=== PATIENT | male | born 1980 | race Caucasian/White ===

== ENCOUNTER 2018-12-06 18:10 | Inpatient (IN) ==
[2018-12-06 18:49] LABS: Bilirubin,Urine Negative (Negative); Blood,Urine Negative (Negative); Clarity,Urine Clear (Clear); Color,Urine Yellow (Yellow); Glucose,Urine (UA) Normal (Normal); Ketones,Urine Negative (Negative); Leukocyte Esterase,Urine Negative (Negative); Nitrite,Urine Negative (Negative); Protein,Urine Negative (Neg-Trace); Urobilinogen,Urine Normal (Normal)
--- NOTE | 2018-12-06 18:50 | Emergency Department Note ---
Disposition Clinical Impression: Suicidal ideation Disposition: Still a Patient Condition: Undetermined Instructions: Depression (ED), Suicide Prevention for Adults (ED) Reasons to Return/Additional Instructions: Please return to the ED if you experience any new or worsening symptoms of anxiety, or depression, including thoughts of harming yourself or others, hallucinations, or any other symptoms that may be concerning to you. Please follow-up with your primary care provider within the next week as well as further psychiatric/counseling services as referred by [place] [facility]. Referrals: NONE,PCP [Primary Care Provider] - Forms: ED Satisfaction Letter Time of Disposition: 21:10 Psych HPI - General Chief Complaint: ED Psychiatric Symptoms Stated Complaint: psych eval, SI/HI Time Seen by Provider: 12/06/18 18:35 Source: patient, family Mode of arrival: ambulatory Limitations: no limitations Nursing Notes Reviewed: Yes Vital Signs Reviewed: Yes - History of Present Illness HPI Narrative: 38 year old male past medical history of unmedicated bipolar disorder presenting for 2 weeks of worsening depression and suicidal ideation. Patient states that today is the anniversary of his father's which caused him to have deeply negative emotional feelings. Patient admits to suicidal ideation but denies a specific plan. Patient states that he has been medicated as well as attended counseling in the past but has had no recent follow-ups. Patient denies homicidal ideation. Patient denies any recent suicide attempts, denies trauma or ingestion. Patient states that he "went on a binger" the other day" but denies any recent trauma. Patient expresses his desire to get help and speak with a counselor. Pt complaint: suicidal ideation, feels depressed Onset (ago): week(s) Duration: constant, getting worse History of similar episodes: Yes Improves with: medication, therapy Worsens with: alcohol, drug use Context: recent alcohol abuse, not taking psychiatric medications, significant life stressor Alleged intoxication: No Associated Psychiatric Symptoms: depression, suicidal ideation Associated symptoms: Reports: denies other symptoms Traumatic symptoms: denies traumatic injury Treatments prior to arrival: none Self harm or harm to others: admits thoughts of self harm, denies having a plan - Related Data Previous Rx's Medication Instructions Recorded Cyclobenzaprine [Flexeril] 10 mg PO TID PRN #20 tablet 08/01/18 Ibuprofen [Motrin] 600 mg PO Q8HR PRN #20 tab 08/01/18 Allergies Allergy/AdvReac Type Severity Reaction Status Date / Time No Known Allergies Allergy Verified 08/01/18 13:31 All systems ED: reviewed and negative except as stated. Review of Systems: As Per HPI Cardiovascular: Denies: chest pain Respiratory: Denies: dyspnea Gastrointestinal: Denies: abdominal pain Musculoskeletal: Denies: back pain, neck pain Neurological: Denies: headache, weakness, numbness, paresthesias Past Medical History - Past Medical History Source: patient Medical history: Reports: no medical history Surgical history: Reports: non-contributory Psychiatric history: Reports: no psych history - Social History Smoking Status: Current every day smoker Smokeless Tobacco Status: No Alcohol use: Reports: occasionally Drug use: Reports: none Physical Exam - General Limitations: no limitations General appearance: alert, in no apparent distress - Head Head exam: atraumatic, normocephalic, normal inspection - Eye Eye exam: Present: normal appearance, PERRL, EOMI. Absent: scleral icterus - Neck Neck exam: Present: normal inspection, trachea midline. Absent: thyromegaly - Chest Chest inspection: Present: normal inspection, symmetric chest wall rise - Respiratory Respiratory exam: Present: normal lung sounds bilaterally. Absent: respiratory distress, wheezes, stridor, accessory muscle use, prolonged expiratory phase - Cardiovascular Cardiovascular exam: Present: regular rate, normal rhythm, normal heart sounds, +S1, +S2. Absent: systolic murmur, diastolic murmur, JVD, +S3, +S4 - Abdominal Exam Abdominal exam: Present: soft, Non-Tender, normal bowel sounds. Absent: distention, guarding, rebound, rigidity - Neurological Exam Neurological exam: Present: alert, oriented X3 - Psychiatric Psychiatric exam: Present: depressed - Skin Skin exam: Present: warm, dry, intact, normal color. Absent: rash, cyanosis, diaphoresis, erythema, pallor, mottled Course Course Narrative: Metabolic laboratories and toxicologies ordered in order to medically clear patient We will notify 1 a psychiatric services upon completion. Vital Signs Temperature 97.6 F 12/06/18 18:23 Pulse Rate 101 12/06/18 18:23 Respiratory Rate 18 12/06/18 18:23 Blood Pressure 129/83 12/06/18 18:23 O2 Sat by Pulse Oximetry 96 12/06/18 18:23 Temperature 97.6 F 12/06/18 18:23 Pulse Rate 87 12/06/18 18:49 Respiratory Rate 16 12/06/18 18:49 Blood Pressure 124/78 12/06/18 18:49 O2 Sat by Pulse Oximetry 98 12/06/18 18:49 Oxygen Delivery Oxygen Delivery Room Air Psych - MDM Narrative Medical decision making narrative: Laboratory values are negative for acute pathology. Patient is medically cleared for psychiatric evaluation. - Lab Data Lab results reviewed: Yes I reviewed the patient's lab results. Result diagrams: 12/06/18 18:52 12/06/18 18:52 Lab Results 12/06/18 12/06/18 12/06/18 Range/Units 18:38 18:38 18:52 WBC 7.9 (4.3-11.1) K/mcL RBC 4.58 (4.19-5.50) M/mcL Hgb 14.1 (12.9-16.9) g/dL Hct 41.8 (37.5-50.1) % MCV 91.3 (83.0-100.0) fL MCH 30.8 (28.0-33.3) pg MCHC 33.7 (31.6-35.5) g/dL RDW 13.2 (11.5-14.5) % Plt Count 245 (140-400) K/mcL MPV 10.1 (9.4-12.4) fL Immature Gran % 0.5 (0-4) % Seg Neutrophils % 60.3 % Lymphocytes % 29.0 % Monocytes % 7.3 % Eosinophils % 2.5 % Basophils % 0.4 % Neutrophils # 4.8 (1.6-8.9) K/mcL Lymphocytes # 2.3 (0.6-4.6) K/mcL Monocytes # 0.6 (0.0-1.3) K/mcL Eosinophils # 0.2 (0.0-0.6) K/mcL Basophils # 0.0 (0.0-0.2) K/mcL Sodium (136-145) mEq/L Potassium (3.5-5.1) mEq/L Chloride (98-107) mEq/L Carbon Dioxide (23-29) mEq/L BUN (6-20) mg/dL Creatinine (0.70-1.30) mg/dL Est GFR ( Amer) (> 60) Est GFR (Non-Af Amer) (> 60) BUN/Creatinine Ratio (6-26) Glucose (70-105) mg/dL Calculated Osmolality (280-300) Calcium (8.6-10.3) mg/dL Urine Color Yellow (Yellow) Urine Clarity Clear (Clear) Urine pH 7.0 (5.0-8.0) pH Units Ur Specific [place] 1.010 (1.010-1.025) Urine Protein Negative (Neg-Trace) mg/dL Urine Glucose (UA) Normal (Normal) mg/dL Urine Ketones Negative (Negative) mg/dL Urine Blood Negative (Negative) Urine Nitrite Negative (Negative) Urine Bilirubin Negative (Negative) Urine Urobilinogen Normal (Normal) mg/dL Ur Leukocyte Esterase Negative (Negative) Salicylates (15.0-30.0) mg/dL Urine Opiates Screen Negative (Hzeset=425) ng/mL Acetaminophen (10-20) mcg/mL Ur Barbiturates Screen Negative ([place]=485) ng/mL Ur Phencyclidine Scrn Negative (Cutoff=25) ng/mL Ur Amphetamines Screen Negative (Sxwjdd=5504) ng/mL U Benzodiazepines Scrn Negative (Bzorxl=436) ng/mL Urine Cocaine Screen Negative (Cutoff= 300) ng/mL U Marijuana (THC) Screen Positive H (Cutoff = 50) ng/mL Ur Drug Screen Interp See Below Ethyl Alcohol (Less than 10) mg/dL 12/06/18 Range/Units 18:52 WBC (4.3-11.1) K/mcL RBC (4.19-5.50) M/mcL Hgb (12.9-16.9) g/dL Hct (37.5-50.1) % MCV (83.0-100.0) fL MCH (28.0-33.3) pg MCHC (31.6-35.5) g/dL RDW (11.5-14.5) % Plt Count (140-400) K/mcL MPV (9.4-12.4) fL Immature Gran % (0-4) % Seg Neutrophils % % Lymphocytes % % Monocytes % % Eosinophils % % Basophils % % Neutrophils # (1.6-8.9) K/mcL Lymphocytes # (0.6-4.6) K/mcL Monocytes # (0.0-1.3) K/mcL Eosinophils # (0.0-0.6) K/mcL Basophils # (0.0-0.2) K/mcL Sodium 140 (136-145) mEq/L Potassium 4.1 (3.5-5.1) mEq/L Chloride 105 (98-107) mEq/L Carbon Dioxide 27 (23-29) mEq/L BUN 12 (6-20) mg/dL Creatinine 0.84 (0.70-1.30) mg/dL Est GFR ( Amer) > 60 (> 60) Est GFR (Non-Af Amer) > 60 (> 60) BUN/Creatinine Ratio 14 (6-26) Glucose 103 (70-105) mg/dL Calculated Osmolality 290 (280-300) Calcium 9.3 (8.6-10.3) mg/dL Urine Color (Yellow) Urine Clarity (Clear) Urine pH (5.0-8.0) pH Units Ur Specific [place] (1.010-1.025) Urine Protein (Neg-Trace) mg/dL Urine Glucose (UA) (Normal) mg/dL Urine Ketones (Negative) mg/dL Urine Blood (Negative) Urine Nitrite (Negative) Urine Bilirubin (Negative) Urine Urobilinogen (Normal) mg/dL Ur Leukocyte Esterase (Negative) Salicylates < 2.5 L (15.0-30.0) mg/dL Urine Opiates Screen (Hnultz=838) ng/mL Acetaminophen < 10 L (10-20) mcg/mL Ur Barbiturates Screen (Nrqgan=188) ng/mL Ur Phencyclidine Scrn (Cutoff=25) ng/mL Ur Amphetamines Screen (Lpzbrj=5864) ng/mL U Benzodiazepines Scrn (Rrfsly=962) ng/mL Urine Cocaine Screen (Cutoff= 300) ng/mL U Marijuana (THC) Screen (Cutoff = 50) ng/mL Ur Drug Screen Interp Ethyl Alcohol < 10 (Less than 10) mg/dL Psychiatric Medical Clearance - Medical Clearance Checklist Medical History: No Social History Section defined Current Vitals: Last Vital Signs Temp 97.6 F 12/06/18 18:23 Pulse 87 12/06/18 18:49 Resp 16 12/06/18 18:49 BP 124/78 12/06/18 18:49 Pulse Ox 98 12/06/18 18:49 Psychiatric Lab Panel: Drug Levels and Toxicity 12/06/18 12/06/18 18:38 18:52 Urine Opiates Screen Negative Acetaminophen < 10 L Ur Barbiturates Screen Negative Ur Phencyclidine Scrn Negative Ur Amphetamines Screen Negative U Benzodiazepines Scrn Negative Urine Cocaine Screen Negative U Marijuana (THC) Screen Positive H Ethyl Alcohol < 10 Abnormal Labs: Abnormal lab results Salicylates < 2.5 mg/dL (15.0-30.0) L 12/06/18 18:52 Acetaminophen < 10 mcg/mL (10-20) L 12/06/18 18:52 U Marijuana (THC) Screen Positive ng/mL (Cutoff = 50) H 12/06/18 18:38 Statement of Medical Clearance: I have evaluated the patient, reviewed diagnostic information, and certify that the patient's medical condition is sufficiently stable that transfer to the psychiatric unit does not pose a significant risk of deterioration.
[2018-12-06 19:03] LABS: Amphetamine Screen,Urine Negative ng/mL (Cutoff=1000); Barbiturate Screen,Urine Negative ng/mL (Cutoff=200); Benzodiazepines Screen,Urine Negative ng/mL (Cutoff=200); Cannabinoid Screen,Urine Positive ng/mL (Cutoff = 50); Cocaine Screen,Urine Negative ng/mL (Cutoff= 300); Opiate Screen,Urine Negative ng/mL (Cutoff=300); Phencyclidine Screen,Urine Negative ng/mL (Cutoff=25)
[2018-12-06 19:20] LABS: Basophils % 0.4 %; Eosinophils # 0.2 K/mcL (0.0-0.6); Eosinophils % 2.5 %; Hematocrit 41.8 % (37.5-50.1); Hemoglobin 14.1 g/dL (12.9-16.9); Immature Granulocytes % 0.5 % (0-4); Lymphocytes # 2.3 K/mcL (0.6-4.6); Mean Corpuscular HGB Conc 33.7 g/dL (31.6-35.5); Mean Corpuscular Hemoglobin 30.8 pg (28.0-33.3); Mean Corpuscular Volume 91.3 fL (83.0-100.0); Mean Platelet Volume 10.1 fL (9.4-12.4); Monocytes # 0.6 K/mcL (0.0-1.3); Monocytes % 7.3 %; Neutrophils # 4.8 K/mcL (1.6-8.9); Platelet Count 245 K/mcL (140-400); Red Blood Count 4.58 M/mcL (4.19-5.50); Red Cell Distribution Width 13.2 % (11.5-14.5); Segmented Neutrophils % 60.3 %
[2018-12-06 19:38] LABS: Acetaminophen < 10 mcg/mL (10-20); BUN/Creatinine Ratio 14 (6-26); Blood Urea Nitrogen 12 mg/dL (6-20); Calcium 9.3 mg/dL (8.6-10.3); Carbon Dioxide 27 mEq/L (23-29); Chloride 105 mEq/L (98-107); Ethanol < 10 mg/dL (Less than 10); Glucose 103 mg/dL (70-105); Osmolality,Calculated 290 (280-300); Potassium 4.1 mEq/L (3.5-5.1); Salicylate < 2.5 mg/dL (15.0-30.0); Sodium 140 mEq/L (136-145); eGFR For Non-African Americans > 60 (> 60)
--- NOTE | 2018-12-06 19:53 | Emergency Department Note ---
Disposition Clinical Impression: Suicidal ideation Disposition: Still a Patient Condition: Undetermined Instructions: Depression (ED), Suicide Prevention for Adults (ED) Reasons to Return/Additional Instructions: Please return to the ED if you experience any new or worsening symptoms of anxiety, or depression, including thoughts of harming yourself or others, hallucinations, or any other symptoms that may be concerning to you. Please follow-up with your primary care provider within the next week as well as further psychiatric/counseling services as referred by [place] [facility]. Referrals: NONE,PCP [Primary Care Provider] - Forms: ED Satisfaction Letter General Adult HPI - General Chief complaint: ED Psychiatric Symptoms Stated complaint: psych eval, SI/HI Time Seen by Provider: 12/06/18 18:35 Source: patient, family Mode of arrival: ambulatory Limitations: no limitations - History of Present Illness Pain Scale: 5 - Related Data Previous Rx's Medication Instructions Recorded Cyclobenzaprine [Flexeril] 10 mg PO TID PRN #20 tablet 08/01/18 Ibuprofen [Motrin] 600 mg PO Q8HR PRN #20 tab 08/01/18 Allergies Allergy/AdvReac Type Severity Reaction Status Date / Time No Known Allergies Allergy Verified 08/01/18 13:31 Cardiovascular: Denies: chest pain Respiratory: Denies: dyspnea Gastrointestinal: Denies: abdominal pain Musculoskeletal: Denies: back pain, neck pain Neurological: Denies: headache, weakness, numbness, paresthesias Past Medical History - Past Medical History Medical history: Reports: no medical history Surgical history: Reports: non-contributory Psychiatric history: Reports: no psych history - Social History Smoking Status: Current every day smoker Smokeless Tobacco Status: No Alcohol use: Reports: occasionally Drug use: Reports: none Physical Exam - General Limitations: no limitations General appearance: alert, in no apparent distress Course Course Narrative: will sign patient out to Dr. Mcdonald for followup on 1A reccs. Vital Signs Temperature 97.6 F 12/06/18 18:23 Pulse Rate 101 12/06/18 18:23 Respiratory Rate 18 12/06/18 18:23 Blood Pressure 129/83 12/06/18 18:23 O2 Sat by Pulse Oximetry 96 12/06/18 18:23 Temperature 97.6 F 12/06/18 18:23 Pulse Rate 87 12/06/18 18:49 Respiratory Rate 16 04/12/19 18:49 Blood Pressure 124/78 04/12/19 18:49 O2 Sat by Pulse Oximetry 98 12/06/18 18:49 Oxygen Delivery Oxygen Delivery Room Air Medical Decision Making - Lab Data Result diagrams: 12/06/18 18:52 12/06/18 18:52 Lab Results 12/06/18 12/06/18 12/06/18 Range/Units 18:38 18:38 18:52 WBC 7.9 (4.3-11.1) K/mcL RBC 4.58 (4.19-5.50) M/mcL Hgb 14.1 (12.9-16.9) g/dL Hct 41.8 (37.5-50.1) % MCV 91.3 (83.0-100.0) fL MCH 30.8 (28.0-33.3) pg MCHC 33.7 (31.6-35.5) g/dL RDW 13.2 (11.5-14.5) % Plt Count 245 (140-400) K/mcL MPV 10.1 (9.4-12.4) fL Immature Gran % 0.5 (0-4) % Seg Neutrophils % 60.3 % Lymphocytes % 29.0 % Monocytes % 7.3 % Eosinophils % 2.5 % Basophils % 0.4 % Neutrophils # 4.8 (1.6-8.9) K/mcL Lymphocytes # 2.3 (0.6-4.6) K/mcL Monocytes # 0.6 (0.0-1.3) K/mcL Eosinophils # 0.2 (0.0-0.6) K/mcL Basophils # 0.0 (0.0-0.2) K/mcL Sodium (136-145) mEq/L Potassium (3.5-5.1) mEq/L Chloride (98-107) mEq/L Carbon Dioxide (23-29) mEq/L BUN (6-20) mg/dL Creatinine (0.70-1.30) mg/dL Est GFR ( Amer) (> 60) Est GFR (Non-Af Amer) (> 60) BUN/Creatinine Ratio (6-26) Glucose (70-105) mg/dL Calculated Osmolality (280-300) Calcium (8.6-10.3) mg/dL Urine Color Yellow (Yellow) Urine Clarity Clear (Clear) Urine pH 7.0 (5.0-8.0) pH Units Ur Specific [place] 1.010 (1.010-1.025) Urine Protein Negative (Neg-Trace) mg/dL Urine Glucose (UA) Normal (Normal) mg/dL Urine Ketones Negative (Negative) mg/dL Urine Blood Negative (Negative) Urine Nitrite Negative (Negative) Urine Bilirubin Negative (Negative) Urine Urobilinogen Normal (Normal) mg/dL Ur Leukocyte Esterase Negative (Negative) Salicylates (15.0-30.0) mg/dL Urine Opiates Screen Negative (Smzafq=979) ng/mL Acetaminophen (10-20) mcg/mL Ur Barbiturates Screen Negative (Sbiqet=143) ng/mL Ur Phencyclidine Scrn Negative (Cutoff=25) ng/mL Ur Amphetamines Screen Negative (Khdldv=2983) ng/mL U Benzodiazepines Scrn Negative (Rfhmqf=146) ng/mL Urine Cocaine Screen Negative (Cutoff= 300) ng/mL U Marijuana (THC) Screen Positive H (Cutoff = 50) ng/mL Ur Drug Screen Interp See Below Ethyl Alcohol (Less than 10) mg/dL 12/06/18 Range/Units 18:52 WBC (4.3-11.1) K/mcL RBC (4.19-5.50) M/mcL Hgb (12.9-16.9) g/dL Hct (37.5-50.1) % MCV (83.0-100.0) fL MCH (28.0-33.3) pg MCHC (31.6-35.5) g/dL RDW (11.5-14.5) % Plt Count (140-400) K/mcL MPV (9.4-12.4) fL Immature Gran % (0-4) % Seg Neutrophils % % Lymphocytes % % Monocytes % % Eosinophils % % Basophils % % Neutrophils # (1.6-8.9) K/mcL Lymphocytes # (0.6-4.6) K/mcL Monocytes # (0.0-1.3) K/mcL Eosinophils # (0.0-0.6) K/mcL Basophils # (0.0-0.2) K/mcL Sodium 140 (136-145) mEq/L Potassium 4.1 (3.5-5.1) mEq/L Chloride 105 (98-107) mEq/L Carbon Dioxide 27 (23-29) mEq/L BUN 12 (6-20) mg/dL Creatinine 0.84 (0.70-1.30) mg/dL Est GFR ( Amer) > 60 (> 60) Est GFR (Non-Af Amer) > 60 (> 60) BUN/Creatinine Ratio 14 (6-26) Glucose 103 (70-105) mg/dL Calculated Osmolality 290 (280-300) Calcium 9.3 (8.6-10.3) mg/dL Urine Color (Yellow) Urine Clarity (Clear) Urine pH (5.0-8.0) pH Units Ur Specific [place] (1.010-1.025) Urine Protein (Neg-Trace) mg/dL Urine Glucose (UA) (Normal) mg/dL Urine Ketones (Negative) mg/dL Urine Blood (Negative) Urine Nitrite (Negative) Urine Bilirubin (Negative) Urine Urobilinogen (Normal) mg/dL Ur Leukocyte Esterase (Negative) Salicylates < 2.5 L (15.0-30.0) mg/dL Urine Opiates Screen (Ovwgbz=337) ng/mL Acetaminophen < 10 L (10-20) mcg/mL Ur Barbiturates Screen (Njxrne=565) ng/mL Ur Phencyclidine Scrn (Cutoff=25) ng/mL Ur Amphetamines Screen (Znxbod=4303) ng/mL U Benzodiazepines Scrn (Lxrwie=398) ng/mL Urine Cocaine Screen (Cutoff= 300) ng/mL U Marijuana (THC) Screen (Cutoff = 50) ng/mL Ur Drug Screen Interp Ethyl Alcohol < 10 (Less than 10) mg/dL Attestation Statement - Attestation Attestation: I examined this patient and my medical decision-making was reviewed with the Resident Physician. I agree with the documented findings, disposition and treatment plan as described except to the extent set forth below. 38 year old male presents to the ED with complaits of SI without plan and has an extensive history of bipolar disease. He has not atttempted in the past. he is now medically cleared and we will consult 1A
[2018-12-06] MEDS ORDERED: Ketorolac 30 MG/ML VIAL IM ONE (23:41)
--- NOTE | 2018-12-06 23:44 | Emergency Department Note ---
Disposition Clinical Impression: Suicidal ideation Disposition: Admitted As Inpatient Condition: Good Instructions: Depression (ED), Suicide Prevention for Adults (ED) Reasons to Return/Additional Instructions: Please return to the ED if you experience any new or worsening symptoms of anxiety, or depression, including thoughts of harming yourself or others, hallucinations, or any other symptoms that may be concerning to you. Please follow-up with your primary care provider within the next week as well as further psychiatric/counseling services as referred by [facility]. Referrals: NONE,PCP [Primary Care Provider] - Forms: ED Satisfaction Letter Time of Disposition: 23:56 General Adult HPI - General Chief complaint: ED Psychiatric Symptoms Stated complaint: psych eval, SI/HI Time Seen by Provider: 12/06/18 18:35 Source: patient, family Mode of arrival: ambulatory Limitations: no limitations - History of Present Illness Pain Scale: 5 - Related Data Previous Rx's Medication Instructions Recorded Cyclobenzaprine [Flexeril] 10 mg PO TID PRN #20 tablet 08/01/18 Ibuprofen [Motrin] 600 mg PO Q8HR PRN #20 tab 08/01/18 Allergies Allergy/AdvReac Type Severity Reaction Status Date / Time No Known Allergies Allergy Verified 08/01/18 13:31 Cardiovascular: Denies: chest pain Respiratory: Denies: dyspnea Gastrointestinal: Denies: abdominal pain Musculoskeletal: Denies: back pain, neck pain Neurological: Denies: headache, weakness, numbness, paresthesias Past Medical History - Past Medical History Medical history: Reports: no medical history Surgical history: Reports: non-contributory Psychiatric history: Reports: no psych history - Social History Smoking Status: Current every day smoker Smokeless Tobacco Status: No Alcohol use: Reports: occasionally Drug use: Reports: none Physical Exam - General Limitations: no limitations General appearance: alert, in no apparent distress Course Course Narrative: This patient was signed out to me at shift change from Dr. Holloway and Dr. Glenna Rachel. Patient has been medically cleared and is awaiting evaluation by the [address] psychiatry department. Patient was seen and evaluated in the emergency department by the [address] psychiatry department and they recommend inpatient placement to a dual diagnosis facility. They will work on finding placement. Patient complains of some pain in the left knee which is a chronic problem. He states he has injured it in the past and it feels like it grinds and grades. He requests something for pain but does not want a narcotic. He requested a To radol injection. I examined the left knee. There is no redness or swelling. No joint effusion. Full range of motion. There is some mild diffuse tenderness. No increased laxity of the collateral ligaments. Neurovascular function intact distally. Patient was given Toradol 30 mg IM. - Consultations Consultation #1: [address] psychiatry department decided to go ahead and accept patient here for admission. Patient is being admitted to the [address] psychiatric unit. Time: 23:55 Vital Signs Temperature 97.6 F 12/06/18 18:23 Pulse Rate 101 12/06/18 18:23 Respiratory Rate 18 12/06/18 18:23 Blood Pressure 129/83 12/06/18 18:23 O2 Sat by Pulse Oximetry 96 12/06/18 18:23 Temperature 97.6 F 12/06/18 18:23 Pulse Rate 60 12/06/18 22:33 Respiratory Rate 17 12/06/18 22:33 Blood Pressure 123/77 12/06/18 22:33 O2 Sat by Pulse Oximetry 99 12/06/18 22:33 Oxygen Delivery Oxygen Delivery Room Air Medical Decision Making - Lab Data Result diagrams: 12/06/18 18:52 12/06/18 18:52 Lab Results 12/06/18 12/06/18 12/06/18 Range/Units 18:38 18:38 18:52 WBC 7.9 (4.3-11.1) K/mcL RBC 4.58 (4.19-5.50) M/mcL Hgb 14.1 (12.9-16.9) g/dL Hct 41.8 (37.5-50.1) % MCV 91.3 (83.0-100.0) fL MCH 30.8 (28.0-33.3) pg MCHC 33.7 (31.6-35.5) g/dL RDW 13.2 (11.5-14.5) % Plt Count 245 (140-400) K/mcL MPV 10.1 (9.4-12.4) fL Immature Gran % 0.5 (0-4) % Seg Neutrophils % 60.3 % Lymphocytes % 29.0 % Monocytes % 7.3 % Eosinophils % 2.5 % Basophils % 0.4 % Neutrophils # 4.8 (1.6-8.9) K/mcL Lymphocytes # 2.3 (0.6-4.6) K/mcL Monocytes # 0.6 (0.0-1.3) K/mcL Eosinophils # 0.2 (0.0-0.6) K/mcL Basophils # 0.0 (0.0-0.2) K/mcL Sodium (136-145) mEq/L Potassium (3.5-5.1) mEq/L Chloride (98-107) mEq/L Carbon Dioxide (23-29) mEq/L BUN (6-20) mg/dL Creatinine (0.70-1.30) mg/dL Est GFR ( Amer) (> 60) Est GFR (Non-Af Amer) (> 60) BUN/Creatinine Ratio (6-26) Glucose (70-105) mg/dL Calculated Osmolality (280-300) Calcium (8.6-10.3) mg/dL Urine Color Yellow (Yellow) Urine Clarity Clear (Clear) Urine pH 7.0 (5.0-8.0) pH Units Ur Specific [place] 1.010 (1.010-1.025) Urine Protein Negative (Neg-Trace) mg/dL Urine Glucose (UA) Normal (Normal) mg/dL Urine Ketones Negative (Negative) mg/dL Urine Blood Negative (Negative) Urine Nitrite Negative (Negative) Urine Bilirubin Negative (Negative) Urine Urobilinogen Normal (Normal) mg/dL Ur Leukocyte Esterase Negative (Negative) Salicylates (15.0-30.0) mg/dL Urine Opiates Screen Negative (Wdtrje=322) ng/mL Acetaminophen (10-20) mcg/mL Ur Barbiturates Screen Negative (Hjvepk=733) ng/mL Ur Phencyclidine Scrn Negative (Cutoff=25) ng/mL Ur Amphetamines Screen Negative (Etmwdl=5525) ng/mL U Benzodiazepines Scrn Negative (Onvgsm=115) ng/mL Urine Cocaine Screen Negative (Cutoff= 300) ng/mL U Marijuana (THC) Screen Positive H (Cutoff = 50) ng/mL Ur Drug Screen Interp See Below Ethyl Alcohol (Less than 10) mg/dL 12/06/18 Range/Units 18:52 WBC (4.3-11.1) K/mcL RBC (4.19-5.50) M/mcL Hgb (12.9-16.9) g/dL Hct (37.5-50.1) % MCV (83.0-100.0) fL MCH (28.0-33.3) pg MCHC (31.6-35.5) g/dL RDW (11.5-14.5) % Plt Count (140-400) K/mcL MPV (9.4-12.4) fL Immature Gran % (0-4) % Seg Neutrophils % % Lymphocytes % % Monocytes % % Eosinophils % % Basophils % % Neutrophils # (1.6-8.9) K/mcL Lymphocytes # (0.6-4.6) K/mcL Monocytes # (0.0-1.3) K/mcL Eosinophils # (0.0-0.6) K/mcL Basophils # (0.0-0.2) K/mcL Sodium 140 (136-145) mEq/L Potassium 4.1 (3.5-5.1) mEq/L Chloride 105 (98-107) mEq/L Carbon Dioxide 27 (23-29) mEq/L BUN 12 (6-20) mg/dL Creatinine 0.84 (0.70-1.30) mg/dL Est GFR ( Amer) > 60 (> 60) Est GFR (Non-Af Amer) > 60 (> 60) BUN/Creatinine Ratio 14 (6-26) Glucose 103 (70-105) mg/dL Calculated Osmolality 290 (280-300) Calcium 9.3 (8.6-10.3) mg/dL Urine Color (Yellow) Urine Clarity (Clear) Urine pH (5.0-8.0) pH Units Ur Specific [place] (1.010-1.025) Urine Protein (Neg-Trace) mg/dL Urine Glucose (UA) (Normal) mg/dL Urine Ketones (Negative) mg/dL Urine Blood (Negative) Urine Nitrite (Negative) Urine Bilirubin (Negative) Urine Urobilinogen (Normal) mg/dL Ur Leukocyte Esterase (Negative) Salicylates < 2.5 L (15.0-30.0) mg/dL Urine Opiates Screen (Plkywu=441) ng/mL Acetaminophen < 10 L (10-20) mcg/mL Ur Barbiturates Screen (Avtqfm=844) ng/mL Ur Phencyclidine Scrn (Cutoff=25) ng/mL Ur Amphetamines Screen (Sgzsna=1619) ng/mL U Benzodiazepines Scrn (Erylsk=961) ng/mL Urine Cocaine Screen (Cutoff= 300) ng/mL U Marijuana (THC) Screen (Cutoff = 50) ng/mL Ur Drug Screen Interp Ethyl Alcohol < 10 (Less than 10) mg/dL
[2018-12-07] MEDS ORDERED: MOM Conc 10 ML UD.LIQ PO PRN (00:14)
[2018-12-07] MEDS ORDERED: Haloperidol Lactate 5 MG/ML VIAL IM PRN (00:14)
[2018-12-07] MEDS ORDERED: Mag Hydrox/Al Hydrox/Simeth 30 ML UDC PO PRN (00:14)
[2018-12-07] MEDS ORDERED: *HR* LORazepam 2 MG/ML VIAL IM PRN (00:14)
[2018-12-07] MEDS ORDERED: *HR* LORazepam 1 MG TABLET PO PRN (00:14)
[2018-12-07] MEDS: traZODone 50 MG TABLET PO PRN ×2 (01:01→20:48)
[2018-12-07] MEDS: hydrOXYzine pamoate 25 MG CAPSULE PO PRN ×2 (01:01→20:48)
[2018-12-07] MEDS ORDERED: Nicotine 21 MG PATCH.TD24 TD SCH (09:00)
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
[2018-12-07] MEDS: Ibuprofen 400 MG TABLET PO PRN ×2 (09:57→20:01)
[2018-12-07] MEDS: Nicotine 7 MG PATCH.TD24 TD SCH (09:57)
[2018-12-08] MEDS: Ibuprofen 400 MG TABLET PO PRN (08:30)
[2018-12-08] MEDS: Nicotine 7 MG PATCH.TD24 TD SCH (08:31)
--- NOTE | 2018-12-08 11:08 | Psychiatry Progress Note ---
Date of Encounter: 12/08/18 Time of Encounter: 11:03 Subjective Interval history: Client continues to be depressed with SI. Tolerating Zoloft without side effects so will increase dose for tomorrow morning. No signs/symptoms of alcohol withdrawal. Client reporting a lot of pain in his knee. Has a lot of crepitus on exam. 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 Saw a doctor at [facility] once about his knee but it was never imaged or treated beyond Motrin. Client would like a referral to see someone now. Will need to set him up with a PCP. In the meantime, will increase dose of prn Motrin to try and help with pain. Client looks depressed. Told nursing staff he is not adjusting well to [place]. Has been in the area for a year and feels he is not adjusting to the weather or lack of things to do that he enjoys. Review of Systems Constitutional: Denies: fever, chills, weakness, weight change Eyes: Denies: eye pain, vision change Ears, Nose, Throat: Denies: ear pain, throat pain, dental pain, hearing loss, congestion Cardiovascular: Denies: chest pain, palpitations, dyspnea on exertion Respiratory: Denies: cough, dyspnea, wheezes Gastrointestinal: Denies: abdominal pain, nausea, vomiting, diarrhea, constipation Musculoskeletal: Reports: joint pain Neurological: Denies: headache, weakness, numbness, memory loss Results - Vital Signs Vital Signs: Temp Pulse Resp BP Pulse Ox 96.8 F L 73 16 113/78 96 12/08/18 09:00 12/08/18 09:00 12/08/18 09:00 12/08/18 09:00 12/08/18 09:00 Assessment and Plan (1) Major depress dis, severe Current visit: Yes Status: Acute Plan: Continue hospitalization, Close observation, Suicide Precautions per unit protocol, Encourage participation in unit milieu, Group Therapy, Monitor sleep, Monitor appetite Risks, benefits, side effects, alternatives discussed w/pt: Yes Patient agreeable to treatment: Yes (2) Alcohol dependence Current visit: Yes Status: Acute Plan: Continue hospitalization, Close observation, Suicide Precautions per unit protocol, Encourage participation in unit milieu, Group Therapy, Monitor sleep, Monitor appetite Risks, benefits, side effects, alternatives discussed w/pt: Yes Patient agreeable to treatment: Yes Qualifiers: Substance use status: uncomplicated Qualified Code(s): F10.20 - Alcohol dependence, uncomplicated Consult Discharge Plan - Plan Referrals: NONE,PCP [Primary Care Provider] - Psychiatry Exam - Constitutional Vitals: Temp Pulse Resp BP Pulse Ox 96.8 F L 73 16 113/78 96 12/08/18 09:00 12/08/18 09:00 12/08/18 09:00 12/08/18 09:00 12/08/18 09:00 General appearance: age & developmentally appropriate, well-groomed, well- nourished - Musculoskeletal Gait: slow Station: relaxed Strength & Tone: normal for patient - Psychiatric Patient Orientation: Yes Person, Yes Time, Yes Place Level of alertness: Alert Behavior: calm, cooperative Psychomotor activity: Normal Eye Contact: Maintains Eye Contact Mood Description: Depressed Affect description: congruent with mood Speech Volume: Normal Speech pattern: normal rate, normal rhythm, normal tone, fluent, spontaneous Language & Vocabulary: consistent with education Thought Process: Linear Thought Content: Yes Suicidal ideation, No Homicidal ideation, No Overt delusions Perceptual Disturbances: No Auditory hallucinations, No Visual hallucinations Attention Span Ability: Capable of Focused Attention Memory Description: Grossly Intact Patient Reliability: Reliable Historian Fund of knowledge: Yes abstraction ability, Yes aware of current events Intelligence Estimate: Average Judgment: Fair Insight: Partial
[2018-12-08] MEDS: Ibuprofen 800 MG TABLET PO PRN (15:44)
[2018-12-08] MEDS: traZODone 50 MG TABLET PO PRN ×2 (20:49→22:29)
[2018-12-08] MEDS: hydrOXYzine pamoate 25 MG CAPSULE PO PRN (20:49)
[2018-12-09] MEDS: Ibuprofen 800 MG TABLET PO PRN ×3 (00:16→17:43)
[2018-12-09] MEDS: Nicotine 7 MG PATCH.TD24 TD SCH (09:38)
--- NOTE | 2018-12-09 11:35 | Psychiatry Progress Note ---
Date of Encounter: 12/09/18 Time of Encounter: 10:15 Subjective Interval history: Patient was seen today in his room sleeping. He was easily awakened with verbal stimuli. He reports that he is "fabulous." He states the sarcastically. He said he was taking the "50th nap of the day." When asked how he was doing here, he reports that it is "not highlight of my life." He reports 5-6 out of 10 depression, stating that that is his baseline. However, he reports that "whiskey" is usually involved with his depression outside of the hospital. He denies significant issues of anxiety and sleep today. He does report decreased appetite, stating that he has not eaten since he has been here. He does report "up-and-down" appetite when not in the hospital. He denies significant side effects to medication. He does admit to suicidal ideation, though not currently. He explains that he does "way" the thoughts out but reports that he can talk himself out of these thoughts when thinking about his children, his family members who have suicided, and himself being a "big pussy." He denies cu rrent homicidal ideation, auditory hallucinations, and visual hallucinations. Review of Systems Neurological: Denies: confusion Psychiatric: Reports: depression, suicidal ideation, change in appetite. Denies: anxiety, abnormal sleep pattern, homicidal ideation, auditory hallucinations, visual hallucinations Results - Vital Signs Vital Signs: Temp Pulse Resp BP Pulse Ox 98.9 F 56 20 113/70 96 12/09/18 09:00 12/09/18 09:00 12/09/18 09:00 12/09/18 09:00 12/09/18 09:00 - Drug Levels and Toxicology Drug Levels and Toxicology: None noted this a.m. - Labs Labs: None noted this a.m. - Impressions None noted this a.m. Assessment and Plan (1) Major depress dis, severe Current visit: Yes Status: Acute Plan: Continue hospitalization, Close observation, Suicide Precautions per unit protocol, Encourage participation in unit milieu, Group Therapy, Monitor sleep, Monitor appetite Additional Plan: -Continue sertraline 100 mg by mouth daily for mood -Continue trazodone 50 mg by mouth daily at bedtime when necessary for sleep -Continue hydroxyzine 25 mg by mouth 3 times a day when necessary for anxiety -Continue when necessary medications for agitation -Current prescription is a patient -Will set up psychiatric services once discharged -Anticipated discharge once more psychiatrically stable Risks, benefits, side effects, alternatives discussed w/pt: Yes Patient agreeable to treatment: Yes Consult Discharge Plan - Plan Referrals: NONE,PCP [Primary Care Provider] - - Attending Attestation I examined this patient and my medical decision-making was reviewed with the Resident Physician. I agree with the documented findings, disposition and treatment plan as described except to the extent set forth below. Psychiatry Exam - Constitutional Vitals: Temp Pulse Resp BP Pulse Ox 98.9 F 56 20 113/70 96 12/09/18 09:00 12/09/18 09:00 12/09/18 09:00 12/09/18 09:00 12/09/18 09:00 General appearance: age & developmentally appropriate, well-groomed, well- nourished, average Additional observations: Tattoos noted on most surfaces of body, including head. Patient reports that he has 75% of his body tattooed. Gauged ears noted without earrings in. Nose Piercings noted. - Musculoskeletal Gait: other (Not assessed) Station: relaxed Strength & Tone: normal for patient (Grossly) - Psychiatric Patient Orientation: Yes Person, Yes Time, Yes Place, Yes Circumstance Level of alertness: Alert Behavior: calm, cooperative Psychomotor activity: Normal Eye Contact: Maintains Eye Contact Mood Description: Euthymic/stable Patient description of mood: "Fabulous" Affect description: congruent with mood, full range Speech Volume: Normal Speech pattern: normal rate, normal rhythm, normal tone, fluent, spontaneous Language & Vocabulary: consistent with education Thought Process: Logical, Linear, Goal Oriented Thought Content: No Suicidal ideation, No Homicidal ideation, No Overt delusions Perceptual Disturbances: No Reacting to internal stimuli, No Auditory hallucinations, No Visual hallucinations Attention Span Ability: Capable of Focused Attention Memory Description: Grossly Intact Patient Reliability: Reliable Historian Fund of knowledge: Yes abstraction ability, Yes aware of current events Intelligence Estimate: Average Judgment: Limited Insight: Partial
[2018-12-09] MEDS: traZODone 50 MG TABLET PO PRN (21:27)
[2018-12-09] MEDS: hydrOXYzine pamoate 25 MG CAPSULE PO PRN (21:27)
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
[2018-12-10] MEDS ORDERED: Ketorolac 15 MG/ML VIAL IVP ONE (01:45)
[2018-12-10] MEDS: traZODone 50 MG TABLET PO PRN ×2 (02:08→20:53)
[2018-12-10] MEDS ORDERED: Ketorolac 15 MG/ML VIAL IM ONE (02:32)
[2018-12-10] MEDS: Nicotine 7 MG PATCH.TD24 TD SCH (08:45)
[2018-12-10] MEDS: Ibuprofen 800 MG TABLET PO PRN ×2 (08:47→20:52)
[2018-12-10] MEDS ORDERED: Gabapentin 100 MG CAPSULE PO PRN (09:22)
--- NOTE | 2018-12-10 12:10 | Psychiatry Progress Note ---
Date of Encounter: 12/10/18 Time of Encounter: 11:20 Subjective Interval history: Patient was seen in the group room watching TV. He was amenable to going to his room to speak. He reports that he is "okay." He admits to knee pain that has improved. He states that his depression is "a lot better." He reports that his outlook has changed, excited to be going home. He states when he goes home he has a busy weekend with a lot of events planned. He denies significant issues of anxiety, stating that he is "anxious to go home." He reports poor sleep last night due to medical care that was given to him. He denies issues of appetite. He denies side effects to medication. He denies SI, HI, and AVH. Review of Systems Musculoskeletal: Reports: joint pain (In knee) Psychiatric: Reports: depression. Denies: anxiety, abnormal sleep pattern, suicidal ideation, change in appetite, homicidal ideation, auditory hallucinations, visual hallucinations Results - Vital Signs Vital Signs: Temp Pulse Resp BP Pulse Ox 98.6 F 78 18 119/76 98 12/10/18 09:00 12/10/18 09:00 12/10/18 09:00 12/10/18 09:00 12/10/18 09:00 - Drug Levels and Toxicology Drug Levels and Toxicology: None noted this a.m. - Labs Labs: None noted this a.m. - Impressions ITS Impressions Knee X-Ray 12/10/18 01:31 IMPRESSION: No acute osseous abnormality. D/ / Ej Prather / Ej Prather Interpreting Provider: Ej Prather Assessment and Plan (1) Major depress dis, severe Current visit: Yes Status: Acute Plan: Continue hospitalization, Close observation, Suicide Precautions per unit protocol, Encourage participation in unit milieu, Group Therapy, Monitor sleep, Monitor appetite Additional Plan: -Start gabapentin 200 mg by mouth 3 times a day for pain -Continue sertraline 100 mg by mouth daily for mood -Continue trazodone 50 mg by mouth daily at bedtime when necessary for sleep -Continue hydroxyzine 25 mg by mouth 3 times a day when necessary for anxiety -Continue when necessary medications for agitation -Encourage group participation -Will set up psychiatric services once discharged -Anticipated discharge once more psychiatrically stable, likely tomorrow Risks, benefits, side effects, alternatives discussed w/pt: Yes Patient agreeable to treatment: Yes Consult Discharge Plan - Plan Referrals: NONE,PCP [Primary Care Provider] - - Attending Attestation I examined this patient and my medical decision-making was reviewed with the Resident Physician. I agree with the documented findings, disposition and treatment plan as described except to the extent set forth below. Psychiatry Exam - Constitutional Vitals: Temp Pulse Resp BP Pulse Ox 98.6 F 78 18 119/76 98 12/10/18 09:00 12/10/18 09:00 12/10/18 09:00 12/10/18 09:00 12/10/18 09:00 General appearance: age & developmentally appropriate, well-groomed, well- nourished, average Additional observations: Tattoos and piercings noted - Musculoskeletal Gait: normal, other Station: relaxed Strength & Tone: normal for patient (Grossly) - Psychiatric Patient Orientation: Yes Person, Yes Time, Yes Place, Yes Circumstance Level of alertness: Alert, Follows commands Behavior: calm, cooperative Psychomotor activity: Normal Eye Contact: Maintains Eye Contact Mood Description: Euthymic/stable Patient description of mood: "Okay" Affect description: congruent with mood, full range Speech Volume: Normal Speech pattern: normal rate, normal rhythm, normal tone, fluent, spontaneous, appropriate, clear, coherent Language & Vocabulary: consistent with education Thought Process: Logical, Linear, Goal Oriented Thought Content: No Suicidal ideation, No Homicidal ideation, No Overt delusions Perceptual Disturbances: No Reacting to internal stimuli, No Auditory hallucinations, No Visual hallucinations Attention Span Ability: Capable of Focused Attention Memory Description: Grossly Intact Patient Reliability: Reliable Historian Fund of knowledge: Yes abstraction ability, Yes aware of current events Intelligence Estimate: Average Judgment: Fair Insight: Partial
--- NOTE | 2018-12-10 13:46 | Event Note ---
Date of Encounter: 12/10/18 Time of Encounter: 13:15 Pt evaluated during the night for knee pain. Seems to be doing better. Xray shows no acute process. Rec: Outpatient follow up for further imaging/work up. Will sign off. Thank you for the consult.
[2018-12-10] MEDS: hydrOXYzine pamoate 25 MG CAPSULE PO PRN (20:53)
--- NOTE | 2018-12-11 08:18 | Discharge Summary ---
Date of Encounter: 12/11/18 Time of Encounter: 08:16 Diagnosis - Discharge Diagnosis (1) Major depress dis, severe Status: Acute Medications - Discharge Medications Prescriptions: Gabapentin [Neurontin] 200 mg PO TID PRN #60 capsule PRN Reason: Pain hydrOXYzine pamoate [HydrOXYzine Pamoate] 25 mg PO TID PRN #30 capsule PRN Reason: Anxiety Sertraline [Zoloft] 100 mg PO DAILY #30 tablet traZODone [TraZODone] 50 mg PO HS PRN #30 tablet PRN Reason: Insomnia Cyclobenzaprine [Flexeril] 10 mg PO TID PRN #20 tablet 08/01/18 [Rx] Ibuprofen [Motrin] 600 mg PO Q8HR PRN #20 tab 08/01/18 [Rx] Gabapentin [Neurontin] 200 mg PO TID PRN #60 capsule 12/11/18 [Rx] Sertraline [Zoloft] 100 mg PO DAILY #30 tablet 12/11/18 [Rx] hydrOXYzine pamoate [HydrOXYzine Pamoate] 25 mg PO TID PRN #30 capsule 12/11/18 [Rx] traZODone [TraZODone] 50 mg PO HS PRN #30 tablet 12/11/18 [Rx] Allergy/AdvReac Type Severity Reaction Status Date / Time No Known Allergies Allergy Verified 12/08/18 10:52 Results Procedures and tests throughout hospitalization: Completed Lab Orders Category Date Time Status Acetaminophen Stat Lab 12/06/18 18:52 Completed Basic Metabolic Panel Stat Lab 12/06/18 18:52 Completed Complete Blood Count [HEME] Stat Lab 12/06/18 18:52 Completed Drug Screen, Urine [UCHEM] Stat Lab 12/06/18 18:38 Completed Ethanol Stat Lab 12/06/18 18:52 Completed Salicylate Stat Lab 12/06/18 18:52 Completed Urinalysis reflex Microscopic [URIN] Stat Lab 12/06/18 18:38 Completed Completed Imaging Orders Category Date Time Status XR knee LT 1-2V [XR] Stat Exams 12/10/18 01:31 Completed - Impressions Knee X-Ray 12/10/18 01:31 IMPRESSION: No acute osseous abnormality. D/ / Ej Prather / Ej Prather Interpreting Provider: Ej Prather Provider Date of admission: 12/07/18 00:13 Primary care physician: PCP NONE Consults: 12/09/18 10:09 Consult to Hospitalist [CONS] Routine Consulting Provider: Hospitalist Kip Reason for Consult: severe knee pain with swelling and redness Patient stating that he had fallen earlier today, initially, he denied falling. Also reports hitting his head on his shoes. Neuro checks are now being implemented Q4H while awake. Time Notified: 20:21 Call Completed: Yes Discharging clinician: Shania Berg Psychiatry Exam - Constitutional Vitals: Temp Pulse Resp BP Pulse Ox 99 F 81 18 131/81 96 12/10/18 21:00 12/10/18 21:00 12/10/18 21:00 12/10/18 21:00 12/10/18 21:00 General appearance: age & developmentally appropriate, well-groomed, well- nourished - Musculoskeletal Gait: normal Station: relaxed Strength & Tone: normal for patient - Psychiatric Patient Orientation: Yes Person, Yes Time, Yes Place Level of alertness: Alert Behavior: calm, cooperative Psychomotor activity: Normal Eye Contact: Maintains Eye Contact Mood Description: Euthymic/stable Patient description of mood: "Good" Affect description: congruent with mood, full range Speech Volume: Normal Speech pattern: normal rate, normal rhythm, normal tone, fluent, spontaneous Language & Vocabulary: consistent with education Thought Process: Linear, Goal Oriented Thought Content: No Suicidal ideation, No Homicidal ideation, No Overt delusions Perceptual Disturbances: No Auditory hallucinations, No Visual hallucinations Attention Span Ability: Capable of Focused Attention Memory Description: Grossly Intact Patient Reliability: Reliable Historian Fund of knowledge: Yes abstraction ability, Yes aware of current events Intelligence Estimate: Average Judgment: Good Insight: Full Hospital Course Hospital course: Mr. Camacho is a 38 year old male who was admitted for depression and suicidal ideations. He was started on Zoloft which was titrated up.Patient was educated of diagnosis and the risk-benefit side effects of this alternative treatment options and was monitored for responsiveness and side effects. Mood anxiety s leep and appetite interest improved as did future orientation. Self-harm thoughts subsided, thinking cleared, no psychosis, and mood stabilized. Patient was able to attend both individual and group therapy sessions as well as meet with the psychiatrist daily and urged to discuss any medication or treatment issues or other concerns. The patient was educated primarily by verbal means about their diagnosis and manifestations in their life. The option for treatment including group and individual therapy programming was offered to the patient in addition to the use of medications with all their potential risks, benefits, and side effects as well as the risks of not taking medication and non-adhereance were discussed with the patient at length. The patient was given the opportunity to ask questions and was noted to participate in the treatment in the planning process. The patient felt ready and eager to be discharged from the inpatient psychiatric unit to continue on with treatment as an outpatient. The patient agreed that is they were safe for this disposition. The patient was considered to be able to participate in informed consent and decision making with respect to medical, legal, and financial issues of the time of discharge. At the time of discharge the patient adamantly denied any concerns for lethality including suicidal or homicidal thoughts ideations or plans and was future oriented toward ongoing mental health care. Time spent discussing smoking cessation with patient: 3 to 10 minutes Does patient wish to continue nicotine replacement upon disc: No - Time Spent with Patient Total time spent providing and/or coordinating discharge services: 25 Less than 30 minutes Specific discharge activities: Interval history reviewed. Available labs reviewed . Psychotherapy provided. Patient had an opportunity to ask questions and address concerns. Patient was in agreement with the treatment plan. The risks benefits and side effects of medications were discussed with the patient, including alternatives and treatment. The patient was educated on the abstaining from any alcohol or illicit substances, following up with all scheduled appointments, and taking all medications as prescribed. Assessment and Plan - Patient/Caregiver Discharge Instructions Activity: resume usual activities as tolerated Diet: regular diet Additional Instructions: Continue current medications. Follow up with outpatient mental health. Encourage continued therapy in a group or individual setting. The patient was discharged to home. - Follow up Plan Follow up with: NONE,PCP [Primary Care Provider] - Functional capacity at discharge: independent ambulation Overall status at discharge: Stable Disposition: Home, Self-Care Quality - Multiple Antipsychotics Patient discharged on 2 or more antipsychotic medications: No Procedures - Procedures Procedures: Medication Management, Crisis Stabilization, Supportive Therapy, Group Therapy, Psychoeducational Therapy
[2018-12-11] MEDS: Ibuprofen 800 MG TABLET PO PRN (08:57)
[2018-12-11] MEDS: Nicotine 7 MG PATCH.TD24 TD SCH (08:58)
[2018-12-11 09:07] VITALS: BP 119/74
== END 2018-12-11 11:45 | disposition home or self-care (01) | DRG 751 ==
LOC: EMEROOARM 18:10 → SUATTDRO 12-07 00:13 → 1ANU 12-07 00:13
PROVIDERS: ADMIT Psychiatry & Neurology Psychiatry; ATTEND Psychiatry & Neurology Psychiatry